=== PATIENT | female | born 1990 | race Caucasian/White ===

== ENCOUNTER 2019-09-24 00:41 | Emergency (ER) | payer SELFPAY ==
[2019-09-24 00:48] VITALS: BP 137/85
--- NOTE | 2019-09-24 01:10 | ER Document Report ---
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 Patient just found out she was and she was around 6 to 7 weeks gravid. She is G0, P0. Patient denies any trauma fever chills cough or cold TRAVEL OUTSIDE OF THE [place] IN LAST 30 DAYS: No - HPI Onset: Just prior to arrival Onset/Duration: Sudden, Persistent Quality of pain: Achy Associated symptoms: Other - low back and low abd pain cramps Exacerbated by: Denies Relieved by: Denies Similar symptoms previously: No Recently seen / treated by doctor: No Past Medical History - General Information source: Patient - Social History Smoking Status: Never Smoker Cigarette use (# per day): No Chew tobacco use (# tins/day): No Smoking Education Provided: No Frequency of alcohol use: None Drug Abuse: None Lives with: Family Family History: Reviewed & Not Pertinent Review of Systems - Review of Systems Constitutional: No symptoms reported EENT: No symptoms reported Cardiovascular: No symptoms reported Respiratory: No symptoms reported Gastrointestinal: No symptoms reported Genitourinary: No symptoms reported Female Genitourinary: See HPI, , Heavy/abnormal periods, Vaginal bleeding Musculoskeletal: No symptoms reported Skin: No symptoms reported Hematologic/Lymphatic: No symptoms reported Neurological/Psychological: No symptoms reported Physical Exam - Vital signs Vitals: Temp Pulse Resp BP Pulse Ox 98.9 F 93 18 137/85 H 98 09/24/19 00:46 09/24/19 00:46 09/24/19 00:46 09/24/19 00:46 09/24/19 00:46 Interpretation: Normal - HEENT Head: Normocephalic, Atraumatic Eyes: Normal Pupils: PERRL Nasal: Normal Mouth/Lips: Normal Pharynx: Normal Neck: Normal - Respiratory Respiratory status: No respiratory distress Chest status: Nontender Breath sounds: Normal Chest palpation: Normal - Cardiovascular Rhythm: Regular Heart sounds: Normal auscultation Murmur: No - Abdominal Inspection: Gravid female Distension: No distension Bowel sounds: Normal Tenderness: Tender Organomegaly: No organomegaly - Back Back: Normal - Extremities General upper extremity: Normal inspection General lower extremity: Normal inspection - Neurological Neuro grossly intact: Yes Cognition: Normal Orientation: AAOx4 [place] Coma Scale Eye Opening: Spontaneous Mee Coma Scale Verbal: Oriented [place] Coma Scale Motor: Obeys Commands [place] Coma Scale Total: 15 Speech: Normal Motor strength normal: LUE, RUE, LLE, RLE Sensory: Normal - Psychological Associated symptoms: Anxious, Tearful - Skin Skin Temperature: Warm Skin Moisture: Dry Course - Vital Signs Vital signs: Temp Pulse Resp BP Pulse Ox 98.9 F 93 18 137/85 H 98 09/24/19 00:46 09/24/19 00:46 09/24/19 00:46 09/24/19 00:46 09/24/19 00:46 - Laboratory Result Diagrams: 09/24/19 01:25 09/24/19 01:25 Laboratory results interpreted by me: 09/24/19 09/24/19 09/24/19 01:23 01:25 01:25 MCH 33.6 H Plt Count 122 L Beta HCG, Quant 147.04 H Urine Blood LARGE H - Diagnostic Test Radiology reviewed: Reports reviewed Radiology results interpreted by me: 09/24/19 02:48 Ultrasound was negative for IUP Critical Care Note - Critical Care Note Total time excluding time spent on procedures (mins): 90 Comments: Patient is O- by our lab reports and therefore RhoGam work-up was continued. Patient was offered RhoGam shot Discharge - Discharge Clinical Impression: Miscarriage Condition: Good Disposition: HOME, SELF-CARE Additional Instructions: Follow-up with Dr. Mariah Steward in office or with OB of choice. Return to ER as needed ; bedrest and vaginal rest until seen by Dr. Steward earlier this week. Forms: Return to Work
[2019-09-24 01:44] LABS: ABSOLUTE EOSINOPHILS # (AUTO) 0.1 10^3/uL (0.0-0.6); ABSOLUTE LYMPHOCYTES (AUTO) 2.3 10^3/uL (0.5-4.7); ABSOLUTE MONOCYTES (AUTO) 0.5 10^3/uL (0.1-1.4); ABSOLUTE NEUT (AUTO) 4.2 10^3/uL (1.7-8.2); BASOPHILS % (AUTO) 0.6 % (0-2); EOSINOPHILS % (AUTO) 1.2 % (0-6); HEMATOCRIT 36.4 % (36.0-47.0); HEMOGLOBIN 12.8 g/dL (12.0-15.5); LYMPHOCYTES % (AUTO) 32.4 % (13-45); MEAN CORPUSCULAR HEMOGLOBIN 33.6 pg (27.0-33.4); MEAN CORPUSCULAR HGB CONC 35.1 g/dL (32.0-36.0); MEAN CORPUSCULAR VOLUME 96 fl (80-97); MONOCYTES % (AUTO) 7.4 % (3-13); PLATELET COUNT 122 10^3/uL (150-450); RED CELL DISTRIBUTION WIDTH 12.7 % (11.5-14.0); SEGMENTED NEUTROPHILS % (AUTO) 58.4 % (42-78); TOTAL CELLS COUNTED % (AUTO) 100 %; WHITE BLOOD COUNT 7.1 10^3/uL (4.0-10.5)
[2019-09-24 01:56] LABS: APPEARANCE,URINE CLEAR; BILIRUBIN,URINE NEGATIVE (NEGATIVE); COLOR,URINE STRAW; GLUCOSE, URINE NEGATIVE (NEGATIVE); KETONES,URINE NEGATIVE (NEGATIVE); LEUKOCYTE ESTERASE,URINE NEGATIVE (NEGATIVE); NITRITE,URINE NEGATIVE (NEGATIVE); PROTEIN,URINE NEGATIVE (NEGATIVE); URINE SPECIFIC GRAVITY 1.006; UROBILINOGEN,URINE NEGATIVE mg/dL (<2.0)
[2019-09-24 02:03] LABS: ALBUMIN 4.4 g/dL (3.5-5.0); ALKALINE PHOSPHATASE 46 U/L (38-126); ANION GAP 6 (5-19); ASPARTATE AMINO TRANSFERASE 19 U/L (14-36); BILIRUBIN,TOTAL 0.2 mg/dL (0.2-1.3); BLOOD UREA NITROGEN 13 mg/dL (7-20); CALCIUM 9.7 mg/dL (8.4-10.2); CARBON DIOXIDE 28 mmol/L (22-30); CHLORIDE 104 mmol/L (98-107); GLUCOSE 90 mg/dL (75-110); POTASSIUM 4.3 mmol/L (3.6-5.0); TOTAL PROTEIN 7.3 g/dL (6.3-8.2)
--- NOTE | 2019-09-24 03:12 | RADIOLOGY REPORT (SQ) ---
EXAM DESCRIPTION: US TRANSVAGINAL COMPLETED DATE/TME: 09/24/2019 01:13 CLINICAL HISTORY: 28 years Female, vaginal bleeding. LMP 07/28/2019 COMPARISON: None. TECHNIQUE: Complete first trimester obstetrical ultrasound obtained with transvaginal imaging. FINDINGS: Uterus: The uterus measures 8.1 x 4.5 x 5.5 cm. No myometrial masses. Cervix measures 2.6 cm. Trace fluid in the cervix. Endometrial thickness of 1.9 cm. Gestational sac: Not visualized. pole: Not visualized. heart motion: Not visualized. Yolk sac: Not visualized Placenta: Not visualized. Right ovary: Right ovary measures 4.2 x 3.0 x 2.6 cm Left ovary: The left ovary measures 2.9 x 1.8 x 1.7 cm. Adnexa: No adnexal masses Free fluid: Not identified. Duplex imaging: Color and spectral Doppler imaging demonstrates blood flow in the ovaries. IMPRESSION: 1. No intrauterine identified. Mild endometrial thickening with trace fluid in the cervix. Differential considerations include early normal , miscarriage, and ectopic . Close continued clinical, laboratory, and sonographic follow-up recommended.
== END 2019-09-24 03:42 | disposition home or self-care (01) ==
LOC: ER 00:41
DX: O03.9 Complete or unspecified spontaneous abortion without complication (principal); M54.5 Low back pain; R10.30 Lower abdominal pain, unspecified; R10.819 Abdominal tenderness, unspecified site
CPT/HCPCS: 99285; 86900; 86901; 36415; 86850; 84702; 85025; 80053; 81001; 76817; J2790

== ENCOUNTER 2019-10-26 20:47 | Emergency (ER) | payer MEDICAID ==
[2019-10-26] MEDS ORDERED: MECLIZINE HCL 25 MG TABLET PO ONE (21:23)
--- NOTE | 2019-10-26 21:25 | ER Document Report ---
HPI - HPI Time Seen by Provider: 10/26/19 20:56 Pain Level: Denies Context: Patient is a 28-year-old female that comes to the emergency department for chief complaint of several days of cough, mild sore throat, mild congestion, vague chills, occasional lightheadedness and also vertigo. She denies headache, difficulty breathing, chest pain, nausea or vomiting, abdominal pain. She traveled down approximately 1 month ago from a [place]. She denies lower extremity swelling, history of blood clot. She denies . She denies any daily medications. Past medical history of pots and anxiety. She recently stopped smoking. - CONSTITUTIONAL Constitutional: DENIES: Fever, Chills - REPRODUCTIVE Reproductive: DENIES: : Past Medical History - General Information source: Patient - Social History Smoking Status: Former Smoker Chew tobacco use (# tins/day): No Frequency of alcohol use: None Drug Abuse: None Lives with: Family Family History: Reviewed & Not Pertinent Patient has homicidal ideation: No Surgical Hx: Negative - Immunizations Immunizations up to date: Yes Hx Diphtheria, Pertussis, Tetanus Vaccination: Yes Vertical Provider Document - CONSTITUTIONAL General Appearance: WD/WN, No Apparent Distress - INFECTION CONTROL TRAVEL OUTSIDE OF THE [place] IN LAST 30 DAYS: No - HEENT HEENT: Atraumatic, Normocephalic. negative: Normal ENT Exam - Minimal erythema the posterior pharynx and evidence of postnasal drip, no significant congestion, oropharynx unremarkable otherwise, uvula unremarkable, airway patent. Ears unremarkable, eyes unremarkable - NECK Neck: Normal Inspection - RESPIRATORY Respiratory: Breath Sounds Normal, No Respiratory Distress - CARDIOVASCULAR Cardiovascular: Regular Rate, Regular Rhythm - GI/ABDOMEN Gastrointestinal: Abdomen Soft, Abdomen Non-Tender. negative: Abdomen Tender - BACK Back: Normal Inspection - MUSCULOSKELETAL/EXTREMETIES Musculoskeletal/Extremeties: MAEW, FROM, Non-Tender - NEURO Level of Consciousness: Awake, Alert, Appropriate Motor/Sensory: No Motor Deficit, No Sensory Deficit - DERM Integumentary: Warm, Dry, No Rash Course - Re-evaluation Re-evalutation: Patient has traveled in the past month, however on my exam she has no shortness of breath or chest pain, she is not tachycardic she is not hypoxic, she is alert and well-appearing. She has mild erythema the posterior pharynx, clear lungs, mild congestion, unremarkable exam otherwise. EKG shows sinus rhythm with no T wave inversions or ST segment changes in consecutive leads. Questionable borderline ST segment elevations in some leads but I discussed this with Dr. Irizarry, he advises this appears to be some J-point elevation, no acute findings. Chest x-ray unremarkable. Strep negative. Coronavirus test is pending. I had a long discussion with patient. She admits to initial depression and now some anxiety after her miscarriage but she denies SI or HI, she states she feels safe at home, she states she does feel like if she could sleep better she would feel better overall. She states she needed some reassurance and that she wanted to be tested for the coronavirus. She has no symptoms on my reevaluation, she is calm and well-appearing. She does report doing intermittent vertigo, she does have some mild nystagmus on exam, she was provided with Antivert as well. She has no headache, no neurologic deficits, no other concerning findings, and no current vertigo with standing on my evaluation. Discussed treatment, follow- up with mental health, and return precautions at length. Patient states appreciation and agreement. Stable and well-appearing at time of discharge. - Vital Signs Vital signs: Temp Pulse Resp BP Pulse Ox 98.5 F 69 16 128/87 H 100 10/26/19 20:59 10/26/19 20:52 10/26/19 20:52 10/26/19 20:52 10/26/19 20:52 Discharge - Discharge Clinical Impression: Sore throat, Vertigo, Post-nasal drip, Lightheaded, Anxiety Insomnia Qualifiers: Insomnia type: unspecified Qualified Code(s): G47.00 - Insomnia, unspecified Condition: Stable Disposition: HOME, SELF-CARE Additional Instructions: Your evaluation and testing here tonight did not show any concerning findings. Your chest x-ray is normal, strep negative, EKG with no concerning findings. For the vertigo I recommend the Antivert for the next several days as prescribed. For anxiety/insomnia I recommend the Vistaril as needed. Follow-up with the referral for additional management including a therapist. You have been tested for the coronavirus, you will be contacted with these results, see instructions listed below. Return for any concerning or worsening symptoms including passing out, spiking fevers, difficulty breathing, uncontrolled vomiting, or any other concerning or worsening symptoms. Also return if something is not right. As a person under investigation for COVID-19, the [place] Department of Health and Human Services (divison on public health) advises you to adhere to the following guidance until your test results are reported to you. If your test result is positive, you will receive additional information from your provider and your local health department at that time. Remain at home until you are cleared by the health provider or public health authorities. Keep a log of visitors to your home, notify any visitors to your home of your isolation status. If you plan to move to a new address or leave the county, notify the local health department in your County. Call your Doctor or seek care if you have an urgent medical need. Before seeking medical care, call him to get instructions from the provider before arriving at the medical office, clinic, or hospital. Notify them that you are being tested for the virus (COVID-19) so that arrangements can be made, as necessary, to prevent transmission to others in the healthcare setting. Next, notify the local health department in your county. If a medical emergency arises and you need to call 911, inform the first responders that you are being tested for the virus that causes COVID-19. Next, notify the local health department in your [facility]. Prescriptions: Meclizine HCl [Antivert 25 mg Tablet] 25 mg PO TID PRN #21 tablet PRN Reason: Hydroxyzine Pamoate [Vistaril 25 mg Capsule] 1 - 2 cap PO Q6 PRN #30 capsule PRN Reason: Referrals: [facility] [Provider Group] - Follow up as needed
--- NOTE | 2019-10-26 21:58 | RADIOLOGY REPORT (SQ) ---
EXAM DESCRIPTION: XR CHEST 1 VIEW COMPLETED DATE/TME: 10/26/2019 21:23 CLINICAL HISTORY: 28 years, Female, shortness of breath COMPARISON: None. NUMBER OF VIEWS: TECHNIQUE: LIMITATIONS: None. FINDINGS: No evidence of pulmonary infiltrate or pleural effusion. The heart and mediastinum are unremarkable. Pulmonary vascularity appears normal. IMPRESSION: Normal chest x-ray. copyright 2010 [employer]- All Rights Reserved
--- NOTE | 2019-10-26 22:26 | EKG REPORT ---
SEVERITY:- ABNORMAL ECG - SINUS RHYTHM ST ELEV, PROBABLE NORMAL EARLY REPOL PATTERN : Confirmed by: Genet Coffman MD 26-Oct-2019 22:26:02
[2019-10-26] MEDS ORDERED: HYDROXYZINE PAMOATE 25 MG CAPSULE (4 CAP/ER DISP) PO PRN (22:54)
[2019-10-26 23:13] VITALS: BP 125/73
== END 2019-10-26 23:12 | disposition home or self-care (01) ==
LOC: ER 20:47
DX: R42 Dizziness and giddiness (principal); F41.9 Anxiety disorder, unspecified; J02.9 Acute pharyngitis, unspecified; R05 Cough; R09.81 Nasal congestion; R68.83 Chills (without fever); H55.00 Unspecified nystagmus; R09.82 Postnasal drip; Z20.828 Contact with and (suspected) exposure to other viral communicable diseases; Z87.891 Personal history of nicotine dependence
CPT/HCPCS: 93005; 99284; 87070; 87880; 87635; 71045; 93010; J3490

== ENCOUNTER 2020-04-11 19:00 | Emergency (ER) | payer MEDICAID ==
--- NOTE | 2020-04-11 19:38 | EKG REPORT ---
SEVERITY:- BORDERLINE ECG - SINUS RHYTHM PROBABLE LEFT ATRIAL ABNORMALITY : Confirmed by: Kal Mercado MD 11-Apr-2020 19:37:56
--- NOTE | 2020-04-11 20:18 | ER Document Report ---
ED Medical Screen (RME) - General Chief Complaint: Chest Pain Stated Complaint: SHORTNESS OF BREATH/CHEST PAIN Time Seen by Provider: 04/11/20 20:11 Mode of Arrival: Ambulatory Information source: Patient Notes: Patient presents stating that she thinks she may have had Covid-like symptoms in March although was never tested. Patient reports vertigo symptoms in which she feels as though the room is spinning for the past week. Patient reports shortness of breath and chest discomfort for the past week as well. Patient does report recent flight to [place]. I have greeted and performed a rapid initial assessment of this patient. A comprehensive ED assessment and evaluation of the patient, analysis of test results and completion of the medical decision making process will be conducted by additional ED providers. TRAVEL OUTSIDE OF THE [place]. IN LAST 30 DAYS: No - Related Data Allergies/Adverse Reactions: codeine Allergy (Intermediate, Verified 09/24/19 03:18) VOMITING morphine Adverse Reaction (Intermediate, Verified 09/24/19 03:19) VOMITING Sulfa (Sulfonamide Antibiotics) Adverse Reaction (Intermediate, Verified 09/24/19 03:19) Hives Past Medical History Past Surgical History: Reports: Hx Breast Surgery - Augmentation - Immunizations Immunizations up to date: Yes Hx Diphtheria, Pertussis, Tetanus Vaccination: Yes Physical Exam - Respiratory Respiratory status: No respiratory distress Chest status: Tender - Cardiovascular Rhythm: Regular Heart sounds: S1 appreciated, S2 appreciated
--- NOTE | 2020-04-11 21:12 | RADIOLOGY REPORT (SQ) ---
XR CHEST 1 VIEW HISTORY: Shortness of breath. COMPARISON: 10/26/2019 FINDINGS: The heart size is within normal limits. There is no pulmonary vascular congestion. No consolidation, pleural effusion, or pneumothorax is seen. No acute bony findings are seen. IMPRESSION: No evidence of acute cardiopulmonary disease.
[2020-04-12 01:49] LABS: ABSOLUTE EOSINOPHILS # (AUTO) 0.1 10^3/uL (0.0-0.6); ABSOLUTE LYMPHOCYTES (AUTO) 2.3 10^3/uL (0.5-4.7); ABSOLUTE MONOCYTES (AUTO) 0.4 10^3/uL (0.1-1.4); ABSOLUTE NEUT (AUTO) 3.7 10^3/uL (1.7-8.2); BASOPHILS % (AUTO) 0.4 % (0-2); HEMATOCRIT 38.3 % (36.0-47.0); HEMOGLOBIN 13.5 g/dL (12.0-15.5); LYMPHOCYTES % (AUTO) 35.9 % (13-45); MEAN CORPUSCULAR HEMOGLOBIN 32.7 pg (27.0-33.4); MEAN CORPUSCULAR HGB CONC 35.1 g/dL (32.0-36.0); MEAN CORPUSCULAR VOLUME 93 fl (80-97); MONOCYTES % (AUTO) 5.5 % (3-13); PLATELET COUNT 116 10^3/uL (150-450); RED BLOOD COUNT 4.12 10^6/uL (3.72-5.28); RED CELL DISTRIBUTION WIDTH 12.9 % (11.5-14.0); SEGMENTED NEUTROPHILS % (AUTO) 57.2 % (42-78); TOTAL CELLS COUNTED % (AUTO) 100 %; WHITE BLOOD COUNT 6.4 10^3/uL (4.0-10.5)
[2020-04-12 01:57] LABS: ALBUMIN 4.4 g/dL (3.5-5.0); ALKALINE PHOSPHATASE 48 U/L (38-126); ANION GAP 9 (5-19); ASPARTATE AMINO TRANSFERASE 20 U/L (14-36); BILIRUBIN,DIRECT 0.1 mg/dL (0.0-0.4); BILIRUBIN,TOTAL 0.4 mg/dL (0.2-1.3); BLOOD UREA NITROGEN 13 mg/dL (7-20); CALCIUM 9.7 mg/dL (8.4-10.2); CARBON DIOXIDE 26 mmol/L (22-30); CHLORIDE 103 mmol/L (98-107); GLUCOSE 89 mg/dL (75-110); TOTAL PROTEIN 7.1 g/dL (6.3-8.2)
[2020-04-12 05:04] VITALS: BP 103/73
--- NOTE | 2020-04-12 05:25 | ER Document Report ---
ED General - General Chief Complaint: Vertigo Stated Complaint: SHORTNESS OF BREATH/CHEST PAIN Time Seen by Provider: 04/11/20 20:11 Mode of Arrival: Ambulatory Notes: 29-year-old female no significant past medical history presents with intermittent vertigo for the past week. Patient had no trauma or known precipitating factor, did fly from [place] 1 week ago. Patient has otherwise felt well. Had symptoms she attributes to Covid several weeks ago but those have resolved. Triage note says patient complaining of chest pain and shortness of breath but patient denied this to me at time of my evaluation. Patient says symptoms are not constant and are worse when she moves her head therapist when sitting to standing. Patient has tried Benadryl and nasal sprays for the vertigo which have not helped. Patient feels nauseous but not vomiting. Patient denies any trauma, neck pain, fever, drug use, high blood pressure, high cholesterol, stroke history, neuro history, cardiac risk factors, chest pain, shortness of breath, lower extremity edema, DVT/PE/hypercoagulability history, recent , exogenous estrogen therapy TRAVEL OUTSIDE OF THE [place] IN LAST 30 DAYS: No - Related Data Allergies/Adverse Reactions: codeine Allergy (Intermediate, Verified 09/24/19 03:18) VOMITING morphine Adverse Reaction (Intermediate, Verified 09/24/19 03:19) VOMITING Sulfa (Sulfonamide Antibiotics) Adverse Reaction (Intermediate, Verified 09/24/19 03:19) Hives Past Medical History - General Information source: Patient - Social History Smoking Status: Never Smoker Chew tobacco use (# tins/day): No Frequency of alcohol use: None Drug Abuse: None Family History: Reviewed & Not Pertinent Patient has homicidal ideation: No Past Surgical History: Reports: Hx Breast Surgery - Augmentation - Immunizations Immunizations up to date: Yes Hx Diphtheria, Pertussis, Tetanus Vaccination: Yes Review of Systems - Review of Systems Notes: REVIEW OF SYSTEMS: CONSTITUTIONAL : Denies fever, chills, or sweats. EENT: Denies recent cold/sinus symptoms, denies throat pain CARDIOVASCULAR: Denies chest pain, KIMBER RESPIRATORY: Denies cough, denies shortness of breath. GASTROINTESTINAL: Denies abdominal pain, nausea/vomiting. GENITOURINARY: Denies difficulty urinating, painful urination. FEMALE GENITOURINARY: Denies abnormal vaginal bleeding, vaginal discharge. MUSCULOSKELETAL: Denies neck pain, back pain. SKIN: Denies rash or skin lesions. HEMATOLOGIC : Denies easy bruising or bleeding. LYMPHATIC: Denies swollen, enlarged glands. NEUROLOGICAL: Denies headache, denies change in gait. PSYCHIATRIC: Denies stress or depression. Physical Exam - Vital signs Vitals: Temp Pulse Resp BP Pulse Ox 98.2 F 69 16 112/60 100 04/11/20 20:00 04/11/20 20:00 04/11/20 20:00 04/11/20 20:00 04/11/20 20:00 - Notes Notes: PHYSICAL EXAMINATION: GENERAL: Well-appearing, well-nourished and in no acute distress. HEAD: Atraumatic, normocephalic. EYES: Pupils equal round and appropriate constriction, sclera anicteric, conjunc tiva are normal. ENT: nares patent, moist mucous membranes. NECK: Normal range of motion, supple without lymphadenopathy, no bruits LUNGS: Breath sounds clear to auscultation bilaterally and equal. No wheezes rales or rhonchi. HEART: Regular rate and rhythm without murmurs ABDOMEN: Soft, nontender, no guarding, no masses, no CVAT EXTREMITIES: Normal range of motion, no pitting or edema. No cyanosis. NEUROLOGICAL: Awake, alert, conversing appropriately, moves all extremities spontaneously. Steady narrow-based gait, normal tandem gait, cranial nerves II through XII intact bilaterally, normal [id number] bilaterally, + intermittent right beating nystagmus PSYCH: Normal mood, normal affect. SKIN: Warm, Dry, normal turgor, no rashes or lesions noted. Course - Re-evaluation Re-evalutation: 04/12/20 05:34 Intermittent vertigo symptoms without any risk factors for stroke, no other neuro symptoms, and positive nystagmus suggesting peripheral etiology. Gave patient education on following up with ENT for vestibular therapy, prescribed meclizine and Valium, gave extensive return to ED precautions which he demonstrate understanding of. Patient had complained previously of chest pain shortness of breath in triage but denied the symptoms to me, no cardiac risk factors, PERC negative, no findings on the work-up. Patient ready for discharge with follow-up with ENT and primary doctor within 1 week. - Vital Signs Vital signs: Temp Pulse Resp BP Pulse Ox 97.8 F 59 L 18 103/73 94 04/12/20 02:16 04/12/20 02:16 04/12/20 02:16 04/12/20 04:31 04/12/20 02:16 - Laboratory Result Diagrams: 04/12/20 01:30 04/12/20 01:30 Laboratory results interpreted by me: 04/12/20 01:30 Plt Count 116 L - EKG Interpretation by Me Additional EKG results interpreted by me: 04/12/20 05:35 Sinus rhythm, no significant ST elevations or depressions, no significant T wave abnormalities, QTc 424 Discharge - Discharge Clinical Impression: Vertigo Disposition: HOME, SELF-CARE Additional Instructions: Follow-up with an ENT and discuss vestibular therapy for your vertigo symptoms within 1 week. Try using meclizine for severe symptoms and if this is not help enough then use the Valium. Be careful with driving or operating heavy machinery until you are sure how these drugs will affect you. Valium can cause dependence/addiction, do not use more than you need for your symptoms. If you have worsening vertigo, vomiting and cannot keep down fluids, unsteady walking, weakness or numbness, change in how you speak or how you see, or any other worsening or alarming symptoms return to the emergency department immediately. Follow-up with your primary doctor within 1 week. Prescriptions: Diazepam [Valium 2 mg Tablet] 2 mg PO Q8HP PRN #6 tablet PRN Reason: vertigo despite meclizine Meclizine HCl [Antivert 25 mg Tablet] 25 mg PO QIDP PRN #15 tablet PRN Reason: Referrals: DEMETRIO NICE DO [ASSOCIATE] - Follow up in 1 week SHARON HILLMAN MD [ACTIVE STAFF] - Follow up in 1 week BUFFY LISA MD [NO LOCAL MD] - Follow up in 1 week
== END 2020-04-12 05:33 | disposition home or self-care (01) ==
LOC: ER 19:00
DX: R42 Dizziness and giddiness (principal); R11.0 Nausea; Z88.6 Allergy status to analgesic agent; Z88.5 Allergy status to narcotic agent; Z88.2 Allergy status to sulfonamides
CPT/HCPCS: 36415; 71045; 80053; 84484; 85025; 85379; 93005; 93010; 99285

== ENCOUNTER 2020-06-01 17:08 | Emergency (ER) | payer MEDICAID ==
--- NOTE | 2020-06-01 18:17 | ER Document Report ---
ED Medical Screen (RME) - General Chief Complaint: Sore Throat Stated Complaint: SORE THROAT Time Seen by Provider: 06/01/20 18:01 TRAVEL OUTSIDE OF THE [place] IN LAST 30 DAYS: No - HPI Notes: 06/01/20 18:14 29-year-old female presents to ED for evaluation of persistent sore throat and swollen lymph nodes for the last month. Patient has taken courses of antibiotics as well as been tested for mono in the past without improvement. Patient notes that she also has felt lymph node swelling into the bilateral axillary regions. Patient reports that she is also been tested for Covid which is negative. Notes that she still has pain with swallowing and started with increased swlling to the back part of her tongue. - Related Data Allergies/Adverse Reactions: codeine Allergy (Intermediate, Verified 09/24/19 03:18) VOMITING morphine Adverse Reaction (Intermediate, Verified 09/24/19 03:19) VOMITING Sulfa (Sulfonamide Antibiotics) Adverse Reaction (Intermediate, Verified 09/24/19 03:19) Hives Home Medications: lexapro, propanalol Past Medical History - Social History Chew tobacco use (# tins/day): No Frequency of alcohol use: None Past Surgical History: Reports: Hx Breast Surgery - Augmentation - Immunizations Immunizations up to date: Yes Hx Diphtheria, Pertussis, Tetanus Vaccination: Yes Physical Exam - Vital signs Vitals: Temp Pulse Resp BP Pulse Ox 98.8 F 84 16 117/74 100 06/01/20 17:10 06/01/20 17:10 06/01/20 17:10 06/01/20 17:10 06/01/20 17:10 General: No acute distress. Alert and oriented x3. Sitting comfortably in a stretcher. Skin: Intact without any jaundice, pallor, or erythema. Warm and dry. HEENT: Normocephalic, atraumatic. Pupils are equal round reactive to light and accommodation. Extraocular movements are intact. TMs without erythema with bilateral bulging. Canals are clear. Nares patent without any discharge. Teeth in good condition. Pharynx without erythema, edema, or exudates. Bilateral tonsillar enlargement with erythema and edema Uvula is midline. Airway is patent. Neck: Supple with no lymphadenopathy. Full range of motion. Heart: Regular rate and rhythm. S1,S2. No murmurs, rubs, or gallops. Lungs: Clear to ausculation bilaterally. No wheezes, rhonchi, rales. Equal chest expansion. No retractions. Psych: Mood and affect appropriate. Course - Vital Signs Vital signs: Temp Pulse Resp BP Pulse Ox 98.8 F 84 16 117/74 100 06/01/20 17:10 06/01/20 17:10 06/01/20 17:10 06/01/20 17:10 06/01/20 17:10
[2020-06-01 18:46] LABS: ABSOLUTE EOSINOPHILS # (AUTO) 0.1 10^3/uL (0.0-0.6); ABSOLUTE LYMPHOCYTES (AUTO) 2.1 10^3/uL (0.5-4.7); ABSOLUTE MONOCYTES (AUTO) 0.3 10^3/uL (0.1-1.4); ABSOLUTE NEUT (AUTO) 4.3 10^3/uL (1.7-8.2); BASOPHILS % (AUTO) 0.6 % (0-2); EOSINOPHILS % (AUTO) 1.2 % (0-6); HEMATOCRIT 38.4 % (36.0-47.0); HEMOGLOBIN 13.5 g/dL (12.0-15.5); LYMPHOCYTES % (AUTO) 30.8 % (13-45); MEAN CORPUSCULAR HEMOGLOBIN 32.8 pg (27.0-33.4); MEAN CORPUSCULAR HGB CONC 35.1 g/dL (32.0-36.0); MEAN CORPUSCULAR VOLUME 93 fl (80-97); MONOCYTES % (AUTO) 4.7 % (3-13); PLATELET COUNT 115 10^3/uL (150-450); RED BLOOD COUNT 4.11 10^6/uL (3.72-5.28); SEGMENTED NEUTROPHILS % (AUTO) 62.7 % (42-78); TOTAL CELLS COUNTED % (AUTO) 100 %; WHITE BLOOD COUNT 6.9 10^3/uL (4.0-10.5)
[2020-06-01 19:02] LABS: ALBUMIN 4.7 g/dL (3.5-5.0); ALKALINE PHOSPHATASE 54 U/L (38-126); ANION GAP 6 (5-19); ASPARTATE AMINO TRANSFERASE 30 U/L (14-36); BILIRUBIN,TOTAL 0.4 mg/dL (0.2-1.3); BLOOD UREA NITROGEN 13 mg/dL (7-20); CARBON DIOXIDE 31 mmol/L (22-30); CHLORIDE 102 mmol/L (98-107); GLUCOSE 76 mg/dL (75-110); POTASSIUM 4.4 mmol/L (3.6-5.0); TOTAL PROTEIN 8.2 g/dL (6.3-8.2)
--- NOTE | 2020-06-01 19:35 | ER Document Report ---
ED ENT - General Chief Complaint: Sore Throat Stated Complaint: SORE THROAT Time Seen by Provider: 06/01/20 18:01 Primary Care Provider: PRAVEENA PUCKETT MD [Primary Care Provider] - Follow up as needed TRAVEL OUTSIDE OF THE [place] IN LAST 30 DAYS: No - HPI Notes: 29-year-old female presents to ED for evaluation of increased sore throat over the last month. Patient reports that within the last week she was tested for Covid, mono, and strep. Reports they all came back negative. Reports increased swelling to the bilateral aspects of her tonsils as well as her lymph nodes. No emanuel she has taken 2 courses of antibiotics without improvement. Reports that she has increased pain with swallowing however denies any drooling or dyspnea. Patient denies ear pain, recent travel, concern for Covid, cough, chest pain, or shortness of breath. - Related Data Allergies/Adverse Reactions: codeine Allergy (Intermediate, Verified 09/24/19 03:18) VOMITING morphine Adverse Reaction (Intermediate, Verified 09/24/19 03:19) VOMITING Sulfa (Sulfonamide Antibiotics) Adverse Reaction (Intermediate, Verified 09/24/19 03:19) Hives Home Medications: lexapro, propanalol Past Medical History - Social History Smoking Status: Former Smoker Chew tobacco use (# tins/day): No Frequency of alcohol use: None Family History: Reviewed & Not Pertinent Patient has homicidal ideation: No Past Surgical History: Reports: Hx Breast Surgery - Augmentation - Immunizations Immunizations up to date: Yes Hx Diphtheria, Pertussis, Tetanus Vaccination: Yes Review of Systems - Review of Systems Notes: Constitutional: Negative for fever. HENT: + for sore throat. Eyes: Negative for visual changes. Cardiovascular: Negative for chest pain. Respiratory: Negative for shortness of breath. Gastrointestinal: Negative for abdominal pain, vomiting or diarrhea. Genitourinary: Negative for dysuria. Musculoskeletal: Negative for back pain. Skin: Negative for rash. Neurological: Negative for headaches, weakness or numbness. 10 point ROS negative except as marked above and in HPI. Physical Exam - Vital signs Vitals: Temp Pulse Resp BP Pulse Ox 98.8 F 84 16 117/74 100 06/01/20 17:10 06/01/20 17:10 06/01/20 17:10 06/01/20 17:10 06/01/20 17:10 General: No acute distress. Alert and oriented x3. Sitting comfortably in a stretcher. Skin: No jaundice, pallor, petechiae, or rashes. Warm and dry. HEENT: Normocephalic, atraumatic. Pupils are equal round reactive to light and accommodation. Extraocular movements are intact. TMs without erythema or bulging. Canals are clear. Nares patent without any discharge. Teeth in good condition. Pharynx with erythema, edema without exudates. Mucous membranes moist. Bilateral tonsillar enlargement with erythema and edema. Uvula is midline. Airway is patent. Neck: Supple with bilateral anterior cervical lymphadenopathy. Full range of motion. Heart: Regular rate and rhythm. S1,S2. No murmurs, rubs, or gallops. Lungs: Clear to auscultation bilaterally. No wheezes, rhonchi, rales. Equal chest expansion. No retractions. Neuro: GCS 15. Moving all extremities without discomfort. Course - Re-evaluation Re-evalutation: 06/01/20 19:40 29-year-old female presents to ED for evaluation of sore throat for the last several weeks. Patient was evaluated with labs notable for low platelets. Monospot positive concerns for acute mono infection. Patient has Rylie brunner testing pending but this will almost be positive. On physical exam, patient is found to have an erythematous and edematous bilaterally tonsillar enlargement without exudates. Patient started on salt water gargles, prednisone, and viscous lidocaine. Patient instructed to follow-up with PCP in the next 2-3 days. Patient understands indications to return to the ER. Patient is agreeable with this plan. 06/01/20 20:05 - Vital Signs Vital signs: Temp Pulse Resp BP Pulse Ox 98.8 F 84 16 117/74 100 06/01/20 17:10 06/01/20 17:10 06/01/20 17:10 06/01/20 17:10 06/01/20 17:10 - Laboratory Results Result Diagrams: 06/01/20 18:21 06/01/20 18:24 Laboratory Results Interpreted: 06/01/20 06/01/20 06/01/20 18:21 18:21 18:24 Plt Count 115 L Carbon Dioxide 31 H Monotest POSITIVE H Critical Laboratory Results Reviewed: No Critical Results - Radiology Results Critical Radiology Results Reviewed: No Critical Results Discharge - Discharge Clinical Impression: Mononucleosis Qualifiers: Infectious mononucleosis etiology: other organism Infectious mononucleosis complication: without complication Qualified Code(s): B27.80 - Other infectious mononucleosis without complication Condition: Stable Disposition: HOME, SELF-CARE Instructions: Mononucleosis ([facility], [facility]), Viral Syndrome ([facility], [facility]) Prescriptions: Prednisone [Deltasone 20 mg Tablet] 2 tab PO DAILY 5 Days #20 tablet Lidocaine HCl [Xylocaine 2% Viscous Soln 15 ml Udcup] 10 ml MM TID #100 ml Referrals: PRAVEENA PUCKETT MD [Primary Care Provider] - Follow up as needed
[2020-06-01 20:09] VITALS: BP 114/72
== END 2020-06-01 20:04 | disposition home or self-care (01) ==
LOC: ER 17:08
DX: B27.90 Infectious mononucleosis, unspecified without complication (principal); J02.9 Acute pharyngitis, unspecified; J35.1 Hypertrophy of tonsils; Z79.899 Other long term (current) drug therapy; Z87.891 Personal history of nicotine dependence; Z88.6 Allergy status to analgesic agent; Z88.5 Allergy status to narcotic agent
CPT/HCPCS: 36415; 80053; 85025; 86308; 86664; 86665; 99283